=== PATIENT | male | born 1960 | race Caucasian/White ===

== ENCOUNTER 2017-01-15 15:45 | Inpatient (IN) | payer BC ==
--- NOTE | ~2017-01-15 | CN ---
Consultation Report [facility] [address] [place]. [address] NAME: KHRIS BECKER : 60 STATUS : ADM Analilia PAT#: [id number] AGE: 56 ADM/REG DATE : 01/15/17 MR#: [id number] REPORT SERV DATE: 01/15/17 DICTATED BY: ALBERTO ROTH DATE: 01/15/17 REPORT STATUS : Draft TRANSCRIBED BY: MODL DATE: 01/15/17 CONSULTATION DATE OF CONSULTATION: 01/15/2017 CVD PHYSICIAN: Alebrto Roth M.D. REASON FOR REFERRAL: Khris Becker is a 56-year-old male, who is referred for atrial fibrillation with RVR. HISTORY OF PRESENT ILLNESS: About six weeks ago, Mr. Becker had fever and dyspnea. He was felt to have pneumonia, was treated with antibiotics and steroids. He felt better but then a week ago began to feel weaker with increasing dyspnea and malaise. He was seen by his PCP today and on EKG was found to be in atrial fibrillation with RVR. REVIEW OF SYSTEMS: No syncope, presyncope, chest pain, chest discomfort, previous dysrhythmias, PND, fever, chills, change in bowel habits, bruise, or easy bruising. Rest is negative. PAST MEDICAL HISTORY: Really unremarkable with no home medications noted. SOCIAL HISTORY: He currently is in the process of moving. He had low-level activity. He stopped smoking in 1998, still drinks about two to three times a week. PHYSICAL EXAMINATION: VITAL SIGNS: Blood pressure is 152/83, pulse is 119. He is afebrile. GENERAL: Resting comfortably, nutritional status appears adequate. EYES: PERRLA. LUNGS: No labored use of accessory muscles. Without rales or wheezes. COR: PMI is not displaced. No thrills or heaves. NL S1 and S2. No S3, murmur, click or rub. PULSES: Carotids without bruits. ABD: +BS, nontender. EXT: No cyanosis, clubbing or edema. SKIN: No petechiae. NEURO: Alert and oriented. Does not appear anxious or depressed. LABORATORY EVALUATION: 1. EKG shows atrial fibrillation with nonspecific T-waves. No acute changes are noted. 2. Renal function is normal. 3. Initial troponin is normal. BNP is mildly elevated. TSH is normal. ASSESSMENT: At this time, new-onset atrial fibrillation, questionable secondary to a viral syndrome. Echocardiogram has been ordered. I will consider CAITLYN cardioversion in the Consultation Report [place] [address] [place]. [address] NAME: KHRIS BECKER : 60 STATUS : ADM Analilia PAT#: [id number] AGE: 56 ADM/REG DATE : 01/15/17 MR#: [id number] REPORT SERV DATE: 01/15/17 DICTATED BY: ALBERTO ROTH DATE: 01/15/17 REPORT STATUS : Draft TRANSCRIBED BY: JAKE DATE: 01/15/17 morning. At this time, I had a long discussion with him about the risk and benefits of the CAITLYN cardioversion. I have also had a long discussion with him about the risk and benefits of Coumadin versus NOAC including the lack of specific reversal antidote. JAYDON/JAKE Alberto Roth M.D. / [id number] CC: Ant Jorgensen KATHLEEN L.
--- NOTE | ~2017-01-15 | PUL ---
[facility] [id number] [place]. [address] NAME: LAVINIA MIMS : 60 STATUS : DIS IN PAT#: [id number] AGE: 56 ADM/REG DATE : 01/15/17 MR#: [id number] REPORT SERV DATE: 01/19/17 DICTATED BY: ALEXA PINEDA DATE: 01/19/17 REPORT STATUS : Draft TRANSCRIBED BY: MODL DATE: 01/19/17 PULMONARY FUNCTION TEST START DATE OF TESTIN01/18/2017 END DATE OF TESTIN01/19/2017 COMMENTS: Testing was initially started with the patient breathing room air. Approximately 89 minutes after testing was started, the patient was put on supplemental oxygen at a flow rate of 2 L/minute. RESULTS: Total valid sampling time 6 hours 15 minutes and 40 seconds. Time with an oxygen saturation less than 88%, 1 hour 31 minute and 48 seconds. Oxygen desaturation index 26.5. IMPRESSION: There was significant oxygen desaturation during this study that was conducted predominantly while the patient was breathing supplemental oxygen at a flow rate of 2 L/minute. Additionally, there was an elevated oxygen desaturation index suggestive of possible sleep apnea. Recommend increasing basal flow rate of supplemental oxygen to a minimum of 3 L/minute. Additionally, recommend formal sleep study if clinically indicated. PS/JAKE Alexa Pineda M.D. / [id number] CC: Rolly Mims DO
--- NOTE | ~2017-01-15 | HP ---
History And Physical [place] [id number] [facility] [place]. [address] NAME: LAVINIA BECKER : 60 STATUS : ADM Analilia PAT#: [id number] AGE: 56 ADM/REG DATE : 01/15/17 MR#: [id number] REPORT SERV DATE: 01/15/17 DICTATED BY: SHERRI HARP DATE: 01/15/17 REPORT STATUS : Draft TRANSCRIBED BY: MODL DATE: 01/15/17 DATE OF ADMISSION: 01/15/2017 REASON FOR ADMISSION: New-onset AFib. CHIEF COMPLAINT: "I started feeling tired and short of breath and I was sent down here from my primary care office." HISTORY OF PRESENT ILLNESS: A 56-year-old white male with a history of obesity, without any medical problems, was recently treated for a pneumonia approximately four weeks ago with a 10-day course of antibiotics. He started having some symptoms of shortness of breath at about six weeks and then was finally diagnosed with a pneumonia. He said his symptoms had resolved, but he is a pretty active individual and started having significant left-sided chest pain, nonradiating, dull in nature associated with left finger numbness and left ear pain. He presented to his primary care office and saw the nurse practitioner, Ms. Palomares, who ran an EKG and showed him to have AFib, which is new for him. He was then brought to the [facility] ER for further evaluation. In the ER, he had a repeat EKG which did demonstrate AFib with RVR, heart rate in 130s; however, he was given only a dose of Solu- Medrol, nothing for rate control by the ER physician. Hospice was asked to admit for further evaluation. The patient denies any recent fever, chills, vomiting, diarrhea, but did admit to some diaphoresis and some nausea recently prior to admission. Currently, denies any chest pain. Does admit to some weakness and fatigue. REVIEW OF SYSTEMS: As per HPI. Otherwise, 10-point system reviewed are negative. PAST MEDICAL HISTORY: None. PAST SURGICAL HISTORY: Cholecystectomy. FAMILY HISTORY: Denies any cardiac history. SOCIAL HISTORY: He quit smoking at the age of 40, cold turkey, however, he recently started smoking cigars every now and then. He drinks about half a gallon of hard liquor every week. 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 He has four kids himself and is . His parents a while ago. MEDICATIONS: None. ALLERGIES: NO KNOWN ALLERGIES. PHYSICAL EXAMINATION: VITAL SIGNS: Blood pressure is 127/78, temperature is 98, pulse is 139, and saturating 94% on room air. GENERAL: He is no acute distress. Alert and oriented x3. Very pleasant. HEENT: Normocephalic and atraumatic head. Extraocular muscles are intact. Oropharynx is History And Physical [address] [address] NAME: LAVINIA BECKER : 60 STATUS : ADM Analilia PAT#: [id number] AGE: 56 ADM/REG DATE : 01/15/17 MR#: [id number] REPORT SERV DATE: 01/15/17 DICTATED BY: SHERRI HARP DATE: 01/15/17 REPORT STATUS : Draft TRANSCRIBED BY: MODMelody DATE: 01/15/17 clear. NECK: Supple. No JVD. CARDIAC: Irregularly irregular with tachycardia. No murmurs, rubs, or gallops. PULMONARY: Clear to auscultation bilaterally. ABDOMEN: Soft, nontender, and nondistended. Positive bowel sounds. EXTREMITIES: Show no clubbing or cyanosis. There is some nonpitting lower extremity edema. PSYCHIATRIC: The patient is cooperative. Mood is appropriate. NEUROLOGIC: No focal deficits. SKIN: Warm and dry. LABORATORY DATA: Labs show a negative troponin. White blood cell count 7.7 and hemoglobin 14.5. BUN 15 and creatinine 0.89. INR 1.2. Chest x-ray shows some mild venous congestion. EKG shows AFib with RVR, heart rate in 130s. IMPRESSION: New-onset atrial fibrillation with rapid ventricular response, mild volume overload secondary to rapid ventricular response, obesity, recent treatment for pneumonia four weeks ago. PLAN: To do a trial of IV Lopressor, then switch over to metoprolol 12.5 mg twice a day. If his heart rate is not controlled, then we will start a diltiazem drip per protocol. Obtain an EKG in the morning to determine if his rhythm is still in AFib. We will check one more set of troponin. Order an echocardiogram. Consult Cardiology to evaluate for CAITLYN cardioversion. We will make him n.p.o. after midnight in case [facility] feels that he would benefit from a CAITLYN cardioversion. JENNI/JAKE Sherri Harp MD / [id number] CC: Ant Jorgensen KATHLEEN L
--- NOTE | ~2017-01-15 | DS ---
Discharge Summary [facility] [address] [place]. [address] NAME: LAVINIA BECKER : 60 STATUS : DIS IN PAT#: [id number] AGE: 56 ADM/REG DATE : 01/15/17 MR#: [id number] REPORT SERV DATE: 01/19/17 DICTATED BY: MERI BECKER DATE: 01/19/17 REPORT STATUS : Draft TRANSCRIBED BY: MODL DATE: 01/19/17 ADMISSION DATE: 01/15/2017 DISCHARGE DATE: 01/19/2017 HOSPITAL COURSE: This is a 56-year-old obese male, did not have any home medications prior to coming to the hospital. Recently treated for pneumonia four weeks prior to admission, 10-day course of antibiotics at that time. Since then he stated he had been having some left-sided chest pain, it is nonradiating, dull in nature, left finger numbness, left ear pain. The patient was found to be in atrial fibrillation with RVR 130s to 140s rate. The patient was seen by Cardiology for hopeful cardioversion. Dr. Roth initiated consultation who endorsed the patient also had increased dyspnea and malaise a week prior to admission. Patient possibly new onset atrial fibrillation, questionable secondary to viral syndrome, may have occurred since a month ago since his suspected pneumonia that may have been superimposed with bacterial infection. As a result, the patient had a heart catheterization after the echocardiogram showed a depressed EF at 25%. His coronaries were clean. His LVEDP was 24. No significant valvulopathy was found. As a result, the patient was endorsed from the admitting physician to have drunk possibly half a gallon of hard liquor a week. 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 Reassured the patient attempted to take that off and not be billed for it. Defer to case management regarding that. The patient did desaturate overnight. We did overnight oximetry test. We will try to get case management, provide nighttime oxygen and we will perform a polysomnography test as an outpatient with likely CPAP need for which he will need to use for at least 4 hours at night. Cardiology stated the patient can be discharged. The patient is already on Eliquis for his atrial fibrillation, CHADS2 of at least 2, Lipitor 20, losartan 25, placed on Toprol XL 50 p.o. daily and diltiazem CD 120 p.o. daily. Clinical COPD given he has had a smoking history. His SIRS is likely reactive. His procal is normal. DISCHARGE MEDICATIONS: Eliquis 5 p.o. b.i.d.; Lipitor 20 p.o. daily; Bumex 1 p.o. daily; diltiazem CD 120 p.o. daily; losartan 25 p.o. daily; Toprol-XL 50 p.o. daily; and Spiriva 18 mcg capsule 1 inhaled daily. CONSULTS: Were cardiology. PROCEDURES: Echo and then heart catheterization. Echo shows LVEF 25%, dilated LV, global hypocontractility, mildly enlarged RV, moderately decreased systolic function, mild MR in the echo, elevated right atrial pressures. DISCHARGE DIAGNOSES: Atrial fibrillation with RVR; nonischemic cardiomyopathy, LVEF 25%; SIRS; possible alcoholism in the past. The patient states he does not drink that much now. Clinical COPD. All questions were answered. It took well over 30 minutes to do. Discharge Summary [address] [address] NAME: LAVINIA BECKER : 60 STATUS : DIS IN PAT#: [id number] AGE: 56 ADM/REG DATE : 01/15/17 MR#: [id number] REPORT SERV DATE: 01/19/17 DICTATED BY: MERI BECKER DATE: 01/19/17 REPORT STATUS : Draft TRANSCRIBED BY: JAKE DATE: 01/19/17 DAWSON/JAKE Meri Becker DO / [id number] CC: DO KRIS Cui
[2017-01-15 12:32] LABS: BASOPHILS 0.5 %; BASOPHILS ABSOLUTE 0.04 10/3/uL (0.0-0.16); EOSINOPHILS 0.9 %; EOSINOPHILS ABSOLUTE 0.07 10/3/uL (0.0-0.53); ER CBC TAT 0 Hrs 05 Mins; HEMATOCRIT 42.4 % (40.0-51.0); HEMOGLOBIN 14.5 g/dL (13.6-17.8); IMMATURE GRANULOCYTES 0.1 %; IMMATURE GRANULOCYTES ABSOLUTE 0.01 10/3/uL (0.0-0.11); LYMPHOCYTES 20.6 %; LYMPHOCYTES ABSOLUTE 1.59 10/3/uL (0.67-4.30); MEAN CORPUS HGB CONC 34.2 g/dL (32.0-36.0); MEAN CORPUSCULAR HEMOGLOB 32.3 pg (26.0-34.0); MEAN PLATELET VOLUME 10.3 fL (9.2-13.0); MONOCYTES 10.8 %; MONOCYTES ABSOLUTE 0.83 10/3/uL (0.21-1.20); NEUTROPHILS 67.1 %; NEUTROPHILS ABSOLUTE 5.17 10/3/uL (2.02-8.40); PLATELET COUNT 215 10/3/uL (150-400); RED CELL COUNT 4.49 10/6/uL (4.7-6.1); WHITE BLOOD CELLS 7.7 10/3/uL (4.5-10.5)
[2017-01-15 12:33] LABS: MANUAL DIFF NO %; MEAN CORPUSCULAR VOLUME 94.4 fL (80-100)
[2017-01-15 12:41] LABS: INTERNATIONAL NORMAL RATI 1.2 UNITS (-); PARTIAL THROMBO TIME 26.3 SEC (22.5-37.2); PROTIME (NOT ORD) 15.1 SEC (12.0-14.5)
[2017-01-15 12:49] LABS: BUN (BLOOD UREA NITROGEN) 15 MG/DL (6-23); CALCIUM, SERUM 8.3 MG/DL (8.5-10.4); CHEST PAIN PROFILE TAT 0 Hrs 22 Mins; CHLORIDE, SERUM 109 MMOL/L (96-112); CO2 (CARBON DIOXIDE) 26 MMOL/L (24-34); CREATININE 0.89 MG/DL (0.70-1.30); GFR AFRICAN AMERICAN 111 ML/MIN (>=60); GFR NON AFRICAN AMERICAN 96 ML/MIN (>=60); GLUCOSE, SERUM 165 MG/DL (60-99); POTASSIUM, SERUM 3.7 MMOL/L (3.5-5.3); SODIUM, SERUM 144 MMOL/L (135-148); TROPONIN I 0.02 NG/ML (<0.05)
[2017-01-15] MEDS ORDERED: *DENIES (17:40)
[2017-01-15 21:05] LABS: FREE T4 1.17 NG/DL (0.76-1.46)
[2017-01-16 04:53] LABS: BASOPHILS 0 %; EOSINOPHILS 0 %; HEMATOCRIT 43.2 % (40.0-51.0); HEMOGLOBIN 14.3 g/dL (13.6-17.8); IMMATURE GRANULOCYTES 0.1 %; IMMATURE GRANULOCYTES ABSOLUTE 0.01 10/3/uL (0.0-0.11); LYMPHOCYTES 6.9 %; LYMPHOCYTES ABSOLUTE 0.47 10/3/uL (0.67-4.30); MANUAL DIFF NO %; MEAN CORPUS HGB CONC 33.1 g/dL (32.0-36.0); MEAN CORPUSCULAR HEMOGLOB 32.1 pg (26.0-34.0); MEAN CORPUSCULAR VOLUME 97.1 fL (80-100); MONOCYTES 5.6 %; MONOCYTES ABSOLUTE 0.38 10/3/uL (0.21-1.20); NEUTROPHILS 87.4 %; NEUTROPHILS ABSOLUTE 5.94 10/3/uL (2.02-8.40); PLATELET COUNT 234 10/3/uL (150-400); RBC DISTRIBUTION WIDTH 13.7 % (12.0-16.0); RED CELL COUNT 4.45 10/6/uL (4.7-6.1); WHITE BLOOD CELLS 6.8 10/3/uL (4.5-10.5)
[2017-01-16 04:58] LABS: INTERNATIONAL NORMAL RATI 1.3 UNITS (-); PARTIAL THROMBO TIME 27.1 SEC (22.5-37.2); PROTIME (NOT ORD) 16.5 SEC (12.0-14.5)
[2017-01-16 05:23] LABS: BUN (BLOOD UREA NITROGEN) 16 MG/DL (6-23); CALCIUM, SERUM 8.4 MG/DL (8.5-10.4); CHLORIDE, SERUM 110 MMOL/L (96-112); CO2 (CARBON DIOXIDE) 27 MMOL/L (24-34); CREATININE 0.71 MG/DL (0.70-1.30); GFR AFRICAN AMERICAN 122 ML/MIN (>=60); GFR NON AFRICAN AMERICAN 105 ML/MIN (>=60); GLUCOSE, SERUM 136 MG/DL (60-99); POTASSIUM, SERUM 4.2 MMOL/L (3.5-5.3); SODIUM, SERUM 145 MMOL/L (135-148)
[2017-01-16 13:22] LABS: PROCALCITONIN 0.05 ng/mL (<0.5)
[2017-01-17 04:19] LABS: BASOPHILS 0.3 %; BASOPHILS ABSOLUTE 0.03 10/3/uL (0.0-0.16); EOSINOPHILS 1.3 %; EOSINOPHILS ABSOLUTE 0.13 10/3/uL (0.0-0.53); HEMATOCRIT 43.9 % (40.0-51.0); HEMOGLOBIN 14.4 g/dL (13.6-17.8); IMMATURE GRANULOCYTES 0.3 %; IMMATURE GRANULOCYTES ABSOLUTE 0.03 10/3/uL (0.0-0.11); LYMPHOCYTES 23.5 %; LYMPHOCYTES ABSOLUTE 2.41 10/3/uL (0.67-4.30); MEAN CORPUS HGB CONC 32.8 g/dL (32.0-36.0); MEAN CORPUSCULAR HEMOGLOB 32.4 pg (26.0-34.0); MEAN CORPUSCULAR VOLUME 98.7 fL (80-100); MEAN PLATELET VOLUME 10.1 fL (9.2-13.0); MONOCYTES 11.9 %; MONOCYTES ABSOLUTE 1.22 10/3/uL (0.21-1.20); NEUTROPHILS 62.7 %; NEUTROPHILS ABSOLUTE 6.45 10/3/uL (2.02-8.40); PLATELET COUNT 244 10/3/uL (150-400); RBC DISTRIBUTION WIDTH 14.1 % (12.0-16.0); RED CELL COUNT 4.45 10/6/uL (4.7-6.1)
[2017-01-17 04:21] LABS: MANUAL DIFF NO %; WHITE BLOOD CELLS 10.3 10/3/uL (4.5-10.5)
[2017-01-17 04:23] LABS: INTERNATIONAL NORMAL RATI 1.2 UNITS (-); PROTIME (NOT ORD) 15.1 SEC (12.0-14.5)
[2017-01-17 04:32] LABS: BUN (BLOOD UREA NITROGEN) 18 MG/DL (6-23); CALCIUM, SERUM 8.4 MG/DL (8.5-10.4); CHLORIDE, SERUM 105 MMOL/L (96-112); CHOL/HDL RATIO(NOT ORDER) 3.1 (0-5); CHOLESTEROL 134 MG/DL (< 200); CREATININE 0.95 MG/DL (0.70-1.30); GFR AFRICAN AMERICAN 103 ML/MIN (>=60); GFR NON AFRICAN AMERICAN 89 ML/MIN (>=60); GLUCOSE, SERUM 119 MG/DL (60-99); HDL CHOLESTEROL 43 MG/DL (> 39); LDL CHOLESTEROL 75 MG/DL (< 130); NON-HDL CHOLESTEROL 91 MG/DL (< 160); PHOSPHORUS, SERUM 4.5 MG/DL (2.5-4.5); SODIUM, SERUM 143 MMOL/L (135-148); TRIGLYCERIDE 82 MG/DL (< 150)
[2017-01-17 04:34] LABS: CO2 (CARBON DIOXIDE) 32 MMOL/L (24-34)
[2017-01-17 04:35] LABS: POTASSIUM, SERUM 4.1 MMOL/L (3.5-5.3)
[2017-01-18 06:10] LABS: BASOPHILS 0.6 %; BASOPHILS ABSOLUTE 0.05 10/3/uL (0.0-0.16); EOSINOPHILS 2.3 %; EOSINOPHILS ABSOLUTE 0.19 10/3/uL (0.0-0.53); HEMATOCRIT 42.8 % (40.0-51.0); HEMOGLOBIN 14.2 g/dL (13.6-17.8); IMMATURE GRANULOCYTES 0.2 %; IMMATURE GRANULOCYTES ABSOLUTE 0.02 10/3/uL (0.0-0.11); LYMPHOCYTES 21.7 %; LYMPHOCYTES ABSOLUTE 1.83 10/3/uL (0.67-4.30); MEAN CORPUS HGB CONC 33.2 g/dL (32.0-36.0); MEAN CORPUSCULAR HEMOGLOB 32.1 pg (26.0-34.0); MEAN CORPUSCULAR VOLUME 96.8 fL (80-100); MEAN PLATELET VOLUME 10.2 fL (9.2-13.0); MONOCYTES 13.2 %; MONOCYTES ABSOLUTE 1.11 10/3/uL (0.21-1.20); NEUTROPHILS ABSOLUTE 5.24 10/3/uL (2.02-8.40); PLATELET COUNT 217 10/3/uL (150-400); RBC DISTRIBUTION WIDTH 14.6 % (12.0-16.0); RED CELL COUNT 4.42 10/6/uL (4.7-6.1); WHITE BLOOD CELLS 8.4 10/3/uL (4.5-10.5)
[2017-01-18 06:12] LABS: MANUAL DIFF NO %
[2017-01-18 06:23] LABS: BUN (BLOOD UREA NITROGEN) 15 MG/DL (6-23); CALCIUM, SERUM 8.3 MG/DL (8.5-10.4); CHLORIDE, SERUM 106 MMOL/L (96-112); CO2 (CARBON DIOXIDE) 31 MMOL/L (24-34); CREATININE 0.76 MG/DL (0.70-1.30); GFR AFRICAN AMERICAN 118 ML/MIN (>=60); GFR NON AFRICAN AMERICAN 102 ML/MIN (>=60); GLUCOSE, SERUM 103 MG/DL (60-99); PHOSPHORUS, SERUM 3.6 MG/DL (2.5-4.5); POTASSIUM, SERUM 3.8 MMOL/L (3.5-5.3); SODIUM, SERUM 143 MMOL/L (135-148)
[2017-01-19 04:17] LABS: BASOPHILS 0.4 %; BASOPHILS ABSOLUTE 0.03 10/3/uL (0.0-0.16); EOSINOPHILS ABSOLUTE 0.16 10/3/uL (0.0-0.53); HEMATOCRIT 45.6 % (40.0-51.0); IMMATURE GRANULOCYTES 0.3 %; IMMATURE GRANULOCYTES ABSOLUTE 0.02 10/3/uL (0.0-0.11); LYMPHOCYTES 21.9 %; LYMPHOCYTES ABSOLUTE 1.75 10/3/uL (0.67-4.30); MEAN CORPUS HGB CONC 32.9 g/dL (32.0-36.0); MEAN CORPUSCULAR HEMOGLOB 31.8 pg (26.0-34.0); MEAN CORPUSCULAR VOLUME 96.6 fL (80-100); MEAN PLATELET VOLUME 9.8 fL (9.2-13.0); MONOCYTES ABSOLUTE 0.96 10/3/uL (0.21-1.20); NEUTROPHILS 63.4 %; NEUTROPHILS ABSOLUTE 5.06 10/3/uL (2.02-8.40); PLATELET COUNT 204 10/3/uL (150-400); RBC DISTRIBUTION WIDTH 14.2 % (12.0-16.0); RED CELL COUNT 4.72 10/6/uL (4.7-6.1)
[2017-01-19 04:19] LABS: MANUAL DIFF NO %
[2017-01-19 04:33] LABS: CALCIUM, SERUM 8.4 MG/DL (8.5-10.4); CHLORIDE, SERUM 103 MMOL/L (96-112); CO2 (CARBON DIOXIDE) 32 MMOL/L (24-34); CREATININE 0.82 MG/DL (0.70-1.30); GFR AFRICAN AMERICAN 115 ML/MIN (>=60); GFR NON AFRICAN AMERICAN 99 ML/MIN (>=60); GLUCOSE, SERUM 99 MG/DL (60-99); PHOSPHORUS, SERUM 4.1 MG/DL (2.5-4.5); POTASSIUM, SERUM 3.8 MMOL/L (3.5-5.3); SODIUM, SERUM 144 MMOL/L (135-148)
[2017-01-19 04:39] LABS: BUN (BLOOD UREA NITROGEN) 11 MG/DL (6-23)
[2017-01-19] MEDS ORDERED: ELIQUIS 5 MG TAB5 MG PO (11:51)
[2017-01-19] MEDS ORDERED: TOPXL50 PO (11:52)
[2017-01-19] MEDS ORDERED: COZ25 PO (11:52)
[2017-01-19] MEDS ORDERED: BUM1 PO (11:52)
[2017-01-19] MEDS ORDERED: SPIRIVA INH (11:53)
[2017-01-19] MEDS ORDERED: LIPITOR20 PO (11:53)
[2017-01-19] MEDS ORDERED: CARTIA XT120 MG/24 PO (11:54)
[2017-05-20] MEDS ORDERED: ZANTAC 150 PO (11:31)
== END 2017-01-19 14:12 | disposition home or self-care (01) | DRG 287 ==
LOC: ER 15:45 → CDU1 18:25
PROVIDERS: Emergency Medicine; Internal Medicine; Internal Medicine Cardiovascular Disease
PROC: 4A023N7 Measurement of Cardiac Sampling and Pressure, Left Heart, Percutaneous Approach (ICD-10-PCS; principal; 2017-01-17)
PROC: B2111ZZ Fluoroscopy of Multiple Coronary Arteries using Low Osmolar Contrast (ICD-10-PCS; 2017-01-17)
PROC: B2151ZZ Fluoroscopy of Left Heart using Low Osmolar Contrast (ICD-10-PCS; 2017-01-17)
DX: I48.1 Persistent atrial fibrillation (principal); I42.8 Other cardiomyopathies; R65.10 Systemic inflammatory response syndrome (SIRS) of non-infectious origin without acute organ dysfunction; E87.70 Fluid overload, unspecified; Z68.41 Body mass index [BMI] 40.0-44.9, adult; I34.0 Nonrheumatic mitral (valve) insufficiency; F10.21 Alcohol dependence, in remission; E66.9 Obesity, unspecified; Z87.01 Personal history of pneumonia (recurrent); Z90.49 Acquired absence of other specified parts of digestive tract; Z87.891 Personal history of nicotine dependence
CPT/HCPCS: 71010; 71020; 80048; 80061; 83735; 83880; 84100; 84145; 84439; 84443; 84484; 85025; 85610; 85730; 87040; 93005; 93306; 93458; 94762; 96374; 99152; 99153; 99291; A9270-GY; C1760; C1769; J2250; J2930; J3010; Q9967